=== PATIENT | male | born 1945 | race Caucasian/White ===

== ENCOUNTER → 2021-06-02 08:50 | Outpatient (CLI) | payer MEDICARE, BC, SELFPAY ==
[2021-06-02 10:45] LABS: Prostate Specific Antigen 1.35 ng/mL (0.10-4.00)
== END ==
PROVIDERS: Referring Provider Radiology Radiation Oncology; Visit Provider Radiology Radiation Oncology
DX: C61 Malignant neoplasm of prostate (principal)
CPT/HCPCS: 36415; 84153